=== PATIENT | female | born 1990 | race Two or more races ===

== ENCOUNTER 2025-06-29 10:24 | Emergency (ER) | payer OTHER ==
[~2025-06-29] VITALS: Ht 149.9 cm; Wt 54.4 kg
[2025-06-29] MEDS ORDERED: TRIAMCINOLONE ACETONIDE 40 MG/ML VIAL IM ONE (11:15)
[2025-06-29] MEDS ORDERED: KETOROLAC TROMETHAMINE 60 MG VIAL IM ONE ×2 (11:15→11:33)
[2025-06-29] MEDS ORDERED: TRIAMCINOLONE ACETONIDE 40 MG/ML VIAL ONE (11:32)
[2025-06-29] MEDS ORDERED: NORFLEX100MG PO (11:34)
[2025-06-29] MEDS ORDERED: DICLOFENAC SODI75 MG PO (11:34)
== END 2025-06-29 13:53 | disposition home or self-care (01) ==
LOC: ER 11:24
DX: M54.9 Dorsalgia, unspecified (principal); Z91.013 Allergy to seafood
CPT/HCPCS: 72100; 96372; 99283; J1885; J3301